=== PATIENT | female | born 1970 | race American Indian/Alaskan Native ===

== ENCOUNTER 2016-08-22 12:32 | Outpatient (CLI) | payer BC ==
--- NOTE | 2016-08-23 15:14 | Mammography Report ---
BILATERAL DIGITAL SCREENING MAMMOGRAM with CAD: 08/22/16 12:32:00 CLINICAL: Routine screening. COMPARISON:05/19/15 FINDINGS: The breasts are almost entirely fatty. No mass, architectural distortion or suspicious calcifications. IMPRESSION: No mammographic evidence of malignancy. BI-RADS CATEGORY: 1 - - Negative RECOMMENDATION: Routine mammographic screening in one year. COMMENT: Patient follow-up letters are generated by our [employer] application.
== END 2016-08-22 12:33 | disposition home or self-care (01) ==
LOC: MAMMO 12:32
PROVIDERS: ATTEND Obstetrics & Gynecology Gynecology
DX: Z12.31 Encounter for screening mammogram for malignant neoplasm of breast (principal)
CPT/HCPCS: 77067; G0202

== ENCOUNTER 2018-10-02 06:59 | Outpatient (CLI) | payer BC ==
--- NOTE | 2018-10-02 11:34 | Mammography Report ---
BILATERAL DIGITAL SCREENING MAMMOGRAM with CAD: 10/02/18 06:59:00 CLINICAL: Routine screening. COMPARISON:08/22/16 FINDINGS: The breasts are mostly fatty with a few bilateral scattered fibroglandular densities. A right asymmetry on the CC view requires additional imaging.No architectural distortion or suspicious calcifications.The left breast is negative. IMPRESSION: Right asymmetry requiring further workup. BI-RADS CATEGORY: 0 -- Additional Imaging Evaluation Required RECOMMENDATION: Recall for right lateralmedial and spot length the case and CC views and right breast ultrasound if needed. ACR BI-RADS MAMMOGRAPHIC CODES: 0 = Needs additional imaging evaluation; 1 = Negative; 2 = Benign; 3 = Probably benign; 4 = Suspicious; 5 = Malignant; 6 = Known biopsy-proven malignancy COMMENT: 1. Dense breast tissue, i.e., adenosis, fibrocystic changes, etc., may obscure an underlying neoplasm. 2. Approximately 10% of cancers are not detected with mammography. 3. A negative mammography report should not delay biopsy if a clinically suspicious mass is present. COMMENT: Patient follow-up letters are generated via our [employer] application.
== END 2018-10-02 07:00 | disposition home or self-care (01) ==
LOC: MAMMO 06:59
PROVIDERS: ATTEND Obstetrics & Gynecology
DX: Z12.31 Encounter for screening mammogram for malignant neoplasm of breast (principal)
CPT/HCPCS: 77067

== ENCOUNTER 2019-12-05 06:46 | Outpatient (CLI) | payer BC ==
--- NOTE | 2019-12-05 07:46 | Mammography Report ---
DIGITAL SCREENING MAMMOGRAM WITH CAD, 12/05/2019 INDICATION: Routine screening mammography. ROUTINE TECHNIQUE: Digital bilateral 2D mammography was obtained in the craniocaudal and mediolateral obliq ue projections. This examination was interpreted with the benefit of Computer-Aided Detection analysi s. COMPARISON: 10/02/2018 and priors FINDINGS: Breast Density: The breasts are almost entirely fatty. There is no evidence of dominant mass, suspicious calcifications or architectural distortion in eithe r breast. IMPRESSION: No evidence of malignancy Follow up recommendation: Routine yearly BI-RADS Category 1: Negative. A "normal" or negative report should not discourage follow up or biopsy of a clinically significant f inding. A written summary of these findings will be mailed to the patient. The patient will be entered into a mammography reporting system which will generate a reminder letter for the patient's next appointmen t at the appropriate interval. The [employer] recommends yearly mammograms starting at age 40 and continuing as l danyelle as a woman is in good health. Breast MRI is recommended for women with an approximate 20-25% or greater lifetime risk of breast cancer, including women with a strong family history of breast or ova alexandro cancer or who have been treated for Hodgkin's disease. Signer Name: Nathanael Avila MD Signed: 12/05/2019 7:42 AM Workstation Name: [id number]
== END 2019-12-05 06:47 | disposition home or self-care (01) ==
LOC: MAMMO 06:46
PROVIDERS: ATTEND Obstetrics & Gynecology
DX: Z12.31 Encounter for screening mammogram for malignant neoplasm of breast (principal); N64.89 Other specified disorders of breast
CPT/HCPCS: 77067

== ENCOUNTER 2021-04-15 05:33 | Day surgery (SDC) | payer BC ==
--- NOTE | 2021-04-12 15:45 | Anesthesia Consultation ---
Anesthesia Consult and Med Hx Date of service: 04/15/21 - Airway Anesthetic Teeth Evaluation: Good ROM Head & Neck: Adequate Mental/Hyoid Distance: Adequate Mallampati Class: Class II Intubation Access Assessment: Good - Pre-Operative Health Status ASA Pre-Surgery Classification: ASA2 Proposed Anesthetic Plan: General Nerve Block: TAP - Pulmonary Hx Respiratory Symptoms: No (+2FS) - Cardiovascular System Hx Hypertension: (Occas "White coat syndrome") - Central Nervous System Hx Psychiatric Problems: No - Hematic Hx Anemia: Yes - Other Systems Hx Alcohol Use: Yes (Occas) Hx Cancer: No Hx Obesity: Yes
--- NOTE | 2021-04-13 19:11 | History and Physical Report ---
History of Present Illness Date of examination: 04/12/21 History of present illness: Patient has been reassessed/reevaluated. H&P has been reviewed. No interval changes. This is a 50 years old female who presents with menstrual disorder. The patient complains of menorrhagia, metrorrhagia, dyspareunia, abnormal periods, pelvic pain and anxiety. She complains of irregular menses, heavy bleeding, dysmenorrhea, clotting, history of fibroids, fatigue and cramping, but denies mid-cycle spotting, lack of menses, history of ovarian cysts, history of thyroid disease, history of PCOS, history of bleeding disorder and lighth, but denies abnormal pap smears, dysmenorrhea, post-coital bleeding, abnormal vaginal discha rge, vaginal burning/irritation, vaginal itching, breast mass or lumps, depression, urinary symptoms, chest pain, palpitations, shortness of breath, leg swelling, back pain, abdominal pain, headaches and bowel problems. Patient's work up has included a transvaginal ultrasound which revealed multiple leiomyomas. Patient's symptoms when present disrupts her normal daily activities Patient desires definitive treatment Vital Signs: Patient Profile: 50 Years Old Female LMP: 03/30/2021 Height: 62 inches Weight: 222 pounds BMI: 40.60 Temp: 97.4 degrees F BP sittin / 80 (left arm) Menstrual History: LMP (date): 03/30/2021 Date of Last Mammogram: 12/05/2019 Date of Last Pap Smear: 02/04/2021 Past History : 4 Term Births: 0 Premature Births: 0 Living Children: 0 Para: 0 Mult. Births: 0 Prev : 0 Aborta: 4 Elect. Ab: 2 Spont. Ab: 1 Ectopics: 1 Current Allergies (reviewed today): PCN (Critical) PERCOCET ( Patient states she had one incidence of itching after percocet but has since taken without problem) Past Medical History: Reviewed history from 02/03/2021 and no changes required: Fibroids Endometriosis Past Surgical History: Reviewed and updated today: Salpingectomy Breast Reduction: Family History Summary: Family History of Diabetes father side of the family mother of lung and bone cancer Social History: Patient is single active no condom Smoking History: Patient has never smoked. 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 of genital herpes: no Partner hx. of genital herpes: no Rash/viral illness since LMP: no Hx of STD: None Review of Systems General Complains of fatigue. Denies fever, chills, sweats, anorexia, weakness, malaise, weight loss and sleep disorder. Complains of menorrhagia, pelvic pain and painful periods. Denies vaginal discharge, incontinence, dysuria, hematuria, urinary frequency, amenorrhea, abnormal vaginal bleeding, genital sores, decreased libido, painful sex, urinary urgency, hot flashes, vaginal dryness, vaginal itching and vaginal odor. CV Denies chest pains, palpitations, syncope, dyspnea on exertion, orthopnea, PND and peripheral edema. Resp Denies cough, dyspnea at rest, excessive sputum, hemoptysis, wheezing and pleurisy. GI Denies nausea, vomiting, diarrhea, constipation, change in bowel habits, abdominal pain, melena, hematochezia, jaundice, gas/bloating, indigestion/heartburn, dysphagia and odynophagia. Breast Denies left breast lump, right breast lump, nipple discharge, bloody discharge from nipple, breast pain, abnormal mammogram and breast enlargement. Psych Denies depression, anxiety, irritability and mood swings. Past History Past Medical History: other (SEE HPI FOR DETAILS) Past Surgical History: Other (SEE HPI FOR DETAILS) Social history: full code, other (SEE HPI FOR DETAILS) Family history: other (SEE HPI FOR DETAILS) Medications and Allergies Allergies Allergy/AdvReac Type Severity Reaction Status Date / Time Penicillins Allergy Mild Itching Unverified 04/09/21 16:00 acetaminophen [From Percocet] AdvReac Mild Swelling Unverified 04/09/21 16:00 oxycodone HCl [From Percocet] AdvReac Mild Swelling Unverified 04/09/21 16:00 Home Medications Medication Instructions Recorded Confirmed Last Taken Type No Known Home Medications [No 04/09/21 04/09/21 Unknown History Reported Home Medications] Active Meds: Active Medications Celecoxib (Celecoxib 200 Mg Cap) 400 mg PO PREOP NR Stop: 04/15/21 23:00 Fentanyl (Fentanyl 100 Mcg/2 Ml Inj) 100 mcg IV ONCE ONE Stop: 04/15/21 06:01 Methocarbamol 1,000 mg/ Sodium (Chloride) 260 mls @ 250 mls/hr IV ONCE ONE Stop: 04/15/21 07:02 Lactated Ringer's (Lactated Ringers) 1,000 mls @ 125 mls/hr IV DIRECT LUMZARIA Magnesium Oxide (Magnesium Oxide 400 Mg Tab) 400 mg PO ONCE ONE Stop: 04/15/21 06:01 Midazolam HCl (Midazolam 2 Mg/2 Ml Inj) 2 mg IV PREOP NR Stop: 04/15/21 23:59 Review of Systems Constitutional: other (SEE HPI FOR DETAILS) Exam - Physical Exam Narrative exam: HEENT: normocephalic, no lesions or deformities Skin no ulcers, xanthomas .Tatoo(s) are present Chest: respiratory effort normal, clear to auscultation CV: regular, normal S1-S2, no murmur, no rub, no gallop Abdomen: Obese, normal bowel sounds, soft, nontender, no HSM Neuro: no gross anomalities Extremities: no clubbing, cyanosis, or edema .Tatoo(s) are present 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 No evidence of cystocele or rectocele. Cervix: normal appearance, no lesions, no discharge Uterus: Enlarged uterus 12 to 14 weeks size Adnexae: unable to palpate due to obesity Rectovaginal: Rectal exam deferred due to colonoscopy recently performed or is planned - Constitutional Vitals: Temp Pulse Resp BP Pulse Ox 98.2 F 75 20 171/81 100 04/12/21 08:05 04/12/21 08:05 04/12/21 08:05 04/12/21 08:05 04/12/21 08:05 Assessment and Plan - Patient Problems (1) Menometrorrhagia Current Visit: No Status: Acute Plan to address problem: Probably secondary to # 1 (2) Intramural leiomyoma of uterus Current Visit: No Status: Acute Plan to address problem: Diagnosis explained to patient . Questions answered. Discussed with patient various medical, surgical and radiological therapies common for treatment including expectant management, myomectomy hysterectomy and uterine artery embolization Patient desires definitive treatment Patient desires hysterectomy Discussed risks and benefits of laparotomy, laparoscopy, vaginal and robotic assisted approaches for hysterectomies Patient desires robotic assisted total hysterectomy. Consent reviewed and signed . The risks and alternatives for this surgery were reviewed with the patient. Discuss the risks of the surgery including infection, bleeding possibly heavy enough to require a blood transfusion, possible damage to bowel, bladder or ureter. Patient understand that this surgery with make her sterile.Patient understands if her ovaries are removed she will become menopausal. Also if unable to complete robitcally a laparotomy may be required. Patient understands her risks of adjacent organ damage is increased due to her previous surgery(ies) (3) Dysmenorrhea Current Visit: No Status: Acute Plan to address problem: Probably secondary to # 1 (4) Anemia due to chronic blood loss Current Visit: No Status: Acute Plan to address problem: Probably secondary to # 3 (5) Endometriosis Current Visit: No Status: Acute (6) BMI 40.0-44.9, adult Current Visit: No Status: Acute
[2021-04-15] MEDS ORDERED: LACTATED RINGERS 1,000 ML IV SCH (06:00)
[2021-04-15] MEDS ORDERED: MAGNESIUM OXIDE 400 MG TAB PO ONE (06:00)
[2021-04-15] MEDS ORDERED: methOCARBAMOL 1,000 MG in SODIUM CHLORIDE 0.9% 250ML 250 ML IV ONE (06:00)
[2021-04-15] MEDS ORDERED: CELECOXIB 200 MG CAP PO NR (06:00)
[2021-04-15] MEDS ORDERED: fentaNYL 100 MCG/2 ML INJ IV ONE (06:00)
[2021-04-15] MEDS ORDERED: MIDAZOLAM 2 MG/2 ML INJ IV NR (06:00)
[2021-04-15] MEDS ORDERED: ACETAMINOPHEN 500 MG TAB ONE (06:27)
[2021-04-15] MEDS ORDERED: GENTAMICIN 500 MG in SODIUM CHLORIDE 0.9% 100 ML IV ONE (07:00)
[2021-04-15] MEDS ORDERED: LIDOCAINE MPF (2%) 20 MG/1 ML VIAL 5 ML ONE (07:08)
[2021-04-15] MEDS ORDERED: propofoL 200 MG/20 ML VIAL IV ONE (07:09)
[2021-04-15] MEDS ORDERED: KETAMINE/STERILE WATER 50 MG/ML SYRINGE ONE (07:09)
[2021-04-15] MEDS ORDERED: ONDANSETRON 4 MG/2 ML INJ IV PRN ×2 (07:17→16:10)
[2021-04-15] MEDS ORDERED: HYDROmorphone 1 MG/1 ML INJ IV PRN (07:17)
--- NOTE | 2021-04-15 07:18 | Anesthesia Day of Surgery ---
Anesthesia Day of Surgery - Day of Surgery Patient Examined: Yes Patient H&P Reviewed: Yes Patient is NPO: Yes
[2021-04-15] MEDS ORDERED: BUPIVACAINE/PF (0.25%) 2.5 MG/ML 30 ML VIAL INFILTRATI ONE (07:24)
[2021-04-15] MEDS ORDERED: NEOMY 40 MG/POLYMYXIN B 200,000 UNITS/ML (GU) AMPULE IR ONE ×2 (07:26→09:15)
[2021-04-15] MEDS ORDERED: dexAMETHasone 20 MG/5 ML VIAL ONE (07:31)
[2021-04-15] MEDS ORDERED: MIDAZOLAM 5 MG/5 ML INJ MDV IV ONE (07:38)
[2021-04-15] MEDS ORDERED: CITRIC ACID-SOD CITRATE 500 ML IV ONE (08:37)
[2021-04-15] MEDS ORDERED: ONDANSETRON 4 MG/2 ML INJ ONE ×2 (08:40→16:15)
[2021-04-15] MEDS ORDERED: ROCURONIUM 50 MG/5 ML INJ IV ONE ×2 (08:40→09:17)
[2021-04-15] MEDS ORDERED: KETOROLAC 30 MG/1 ML INJ ONE ×2 (08:41→13:09)
[2021-04-15] MEDS ORDERED: NEOSTIGMINE 10MG/10 ML INJ MDV ONE (08:42)
[2021-04-15] MEDS ORDERED: GLYCOPYRROLATE 0.4 MG/2 ML INJ ONE ×2 (08:42→09:20)
[2021-04-15] MEDS ORDERED: ePHEDrine SULFATE 50 MG/1 ML INJ ONE (09:11)
[2021-04-15] MEDS ORDERED: SODIUM CHLORIDE 0.9% IRR 1,500 ML BOTTLE IR ONE (09:16)
[2021-04-15] MEDS ORDERED: SODIUM CHLORIDE 0.9% IRRIG SOLN 2000 ML IR ONE (09:17)
[2021-04-15] MEDS ORDERED: CITRIC ACID-SOD CITRATE SOLN 500 ML IV SOLN IV ONE (09:17)
[2021-04-15] MEDS ORDERED: HYDROmorphone 1 MG/1 ML INJ ONE (09:26)
[2021-04-15] MEDS ORDERED: METHYLENE BLUE 50 MG/10 ML AMP ONE (09:51)
[2021-04-15] MEDS ORDERED: METHYLENE BLUE 50 MG/10 ML AMP IV ONE (09:53)
[2021-04-15] MEDS ORDERED: SODIUM CHLORIDE 0.9% 1000 ML 1,000 ML ONE (10:27)
[2021-04-15] MEDS ORDERED: PHENYLEPHRINE/NS 1,000 MCG/10 ML SYRINGE (OR USE) IV ONE (11:33)
[2021-04-15] MEDS ORDERED: ACETAMINOPHEN 325 MG TAB PO PRN (13:04)
[2021-04-15] MEDS ORDERED: HYDROcodone/ACETAMINOPHEN 5-325 MG TAB PO PRN (13:04)
[2021-04-15] MEDS ORDERED: KETOROLAC 30 MG/1 ML INJ IV SCH (13:06)
--- NOTE | 2021-04-15 13:36 | Operative Report ---
Operative Report Operative Report: Date of procedure: April 15, 2021 Pre-operative diagnosis: Symptomatic leiomyomata with pelvic pain dysmenorrhea menorrhalgia history of anemia Post-operative diagnosis: Same plus pelvic adhesive disease Procedure name(s):Robotic Assisted Total Hysterectomy with bilateral salpingectomy, left oophorectomy and lysis of adhesions Surgeon: Aung Freedman MD Collections Clerk: Nicole Reno, certified indoor environmentalist Anesthesia: General EBL: 400 cc patient received 125 cc of Cell Saver Complications: None Findings: Patient with a uterus approximately 16 to 18 weeks in size with multiple leiomyomata she had omental adhesions of the anterior abdominal wall adhesions of the left adnexa to the left sidewall with dense adhesions between the left adnexa and posterior uterus. Also some adhesions between the sigmoid colon and the left side of uterus with attachment to leiomyomata. Patient had normal-appearing right ovary bilaterally her fallopian tubes were . Specimen(s): Uterus and multiple pieces due to necessity of removing leiomyomata and also making her uterus are small enough to instruct to be extracted through the colpotomy. Bilateral fallopian tubes and left ovary Procedure: Patient was brought to the operating room where general anesthesia was induced without difficulty. Patient was placed in the dorsal lithotomy position. Prepped and draped in the usual sterile manner for robotic procedure. Guevara catheter was placed without difficulty. Speculum was placed in the vagina. A medium V-Care Uterine manipulator was placed without difficulty. Attention was now switched to the patient's abdomen. A vertical supra-umbilicus incision was made with a scalpel. A 10-12 trocar was placed in this incision under direct visualization. Intra-abdominal placement was verified with no evidence of internal organ damage. The patient was insufflated approximately 3-1/2 L of CO2 gas. She was placed in Trendelenburg position. The patient pelvic findings were noted as above. It was determined that the patient was a candidate for robotic procedure. On both sides the umbilical incision at about 8 cm, incisions were made for robotic trocars. Each robotic trocar was placed under direct visualization with no evidence of internal organ damage. One 5 mm trocar was placed 2 fingerbreadths above the right iliac crest. A 5 mm camera was placed in the right lower quadrant trocar, the 10-12 trocar was removed and a Sagar Nugent laparoscopic port closure device was placed through this incision under direct visualization with no evidence of internal organ damage. The camera was then replaced into this port. At this time the patient was placed in extreme Trendelenburg. The da Mely robot was then docked on the patient's left side. The trocars connected to the robot appropriately robotic instruments were placed under direct visualization no evidence of internal organ damage.. At this time I took my place under the robotic operating moody. The omental vision was first done taken down sharply and bluntly using the vessel sealer and bipolar cautery. The lysis of adhesion was complete with no evidence of organ damage. At this time we could visualize the patient's pelvis more clearly and then noted the dense adhesions of the left adnexa also adhesions on the left side of the uterus and the left side of the posterior cul-de-sac.*The patient's left side using the vessel sealer the round ligament was cauterized and cut with open up the broad ligament to again assist in lysis of adhesions. The denseness of the adhesions between the left adnexa was clearly appreciated on the side. Then made decision to starting the patient's right side to ensure we can preserve her right ovary. Methylene blue was given intravenously to help ensure that if damage to either the bladder or ureters could be detected. There was no spillage of dye noted throughout the case. Patient did have evidence of dye reaching her bladder. Starting on the patient's right side the ureter was identified and found to be out of the operative field. Using the robotic vessel sealer the round ligament was cauterized and cut. The broad ligament was then opened. The bladder flap was formed anteriorly. The utero-ovarian complex was then cauterized and cut. The posterior broad ligament was then excised. The uterine vessels were skeletonized. The ureter was clearly seen out of the operative field. The bladder was pushed away from the anterior uterus. The right uterine vessels were then cauterized and cut. Attention was then switched to the patient's left side. A continue to lyse adhesions between the uterus sigmoid colon and left sidewall. The left ovary was encased in adhesions on the posterior uterus, therefore I am cauterized and cut the left ovarian vessels using the vessel sealer. The uterine vessels were now more clearly seen and with further lysis of adhesions and cautery and cut they were skeletonized. The isolated uterine vessels cauterized and cut. I then completed the bladder flap from the left side. At this time the uterus was appearing very cyanotic. After inspecting the bladder flap to insured no evidence of bladder injury, the colpotomy was then started. Incision started at 12:00 until the V-Care could be seen. This incision was extended from 12:00 to 9:00. Then from 12:00 to 3:00. Then from 9:00 to 6:00. This incision was extended from 3:00 to 6:00. At this time colpotomy was complete with no evidence of adjacent organ damage. The uterus was much too large to be delivered to the colpotomy site, therefore start the process of removing multiple fibroids and delivering those fibroids through to colpotomy to the produce assistant. Even after several moments and then remove the uterus was still too large and the removal multiple portions of the fundus and attempt to bivalve the uterus. Several portion of the uterus within removed then delivered through the colpotomy into the uterus could be completely remove. The produce assistant remove the uterus from through the colpotomy site. The patient's pelvis and vaginal cuff was irrigated and cauterized and found to be hemostatic. Small pieces of the uterus were also removed as much could be seen. The cuff was closed with roboticly using 0 V- Lock suture. This closure was hemostatic after irrigation and Bovie. All pedicles were inspected and found to be hemostatic. The ureters were identified bilaterally and found to be functioning normal. The patient had clear urine in the Guevara catheter with no evidence of mixture with blood. Walt was placed on the cuff and pedicles for postoperative hemostasis . All instruments were then removed. The large trocar sites were closed in layers 2-0 Vicryl and 4-0 Monocryl. The smaller incisions were closed subcuticularly with 4-0 Monocryl. Dermabond was placed over the skin incisions. The patient tolerated procedure well. She was awakened in the operating room and accompanied to the recovery room in good condition.
[2021-04-15] MEDS: HYDROmorphone 1 MG/1 ML INJ IV PRN ×2 (14:03→15:05)
--- NOTE | 2021-04-15 15:28 | Post Anesthesia Evaluation ---
- Post Anesthesia Evaluation Patient Participated: Yes Airway Patent: Yes Stable Respiratory Function: Yes Nausea/Vomiting: No Temp > 96.8F: Yes Pain Manageable: Yes Adequeate Hydration: Yes Anesthesia Complications: No Block Receding Appropriately: Yes Patient on Ventilator: No
--- NOTE | 2021-04-15 16:19 | Event Note ---
Date: 04/15/21 Spoke to Lidya in recovery. She states the patient is doing well vital signs are stable she has been up and walk to the restroom and voided successfully and is presently eating. Plan is to observe her until approximately 1800 with discharge papers continue to be stable and meets of outpatient discharge criteria.
--- NOTE | 2021-04-15 17:19 | Short Stay Summary ---
Short Stay Documentation Date of service: 04/15/21 - History Principal diagnosis: Symptomatic leiomyomata H&P: dictated Past Medical History: other (SEE HPI FOR DETAILS) Past Surgical History: Other (SEE HPI FOR DETAILS) Social history: full code, other (SEE HPI FOR DETAILS) - Allergies and Medications Current Medications: Allergies Penicillins Allergy (Mild, Unverified 04/09/21 16:00) Itching SWELLING acetaminophen [From Percocet] Adverse Reaction (Mild, Unverified 04/09/21 16:00) Swelling AND ITCHING oxycodone HCl [From Percocet] Adverse Reaction (Mild, Unverified 04/09/21 16:00) Swelling AND ITCHING Home Medications Medication Instructions Recorded Confirmed Last Taken Type Ferrous Sulfate [Feosol 325 MG tab] 325 mg PO BID #60 tablet 04/15/21 Unknown Rx HYDROcodone/APAP 5-325 [[place] 1 - 2 each PO Q6HR PRN #20 tablet 04/15/21 Unknown Rx 5/325] Ibuprofen [Motrin] 800 mg PO TID PRN #30 tablet 04/15/21 Unknown Rx metroNIDAZOLE [Flagyl] 500 mg PO Q12HR #14 tab 04/15/21 Unknown Rx Active Medications Acetaminophen (Acetaminophen 325 Mg Tab) 650 mg PO Q4H PRN PRN Reason: Pain MILD(1-3)/Fever >100.5/[place] Hydrocodone Bitart/Acetaminophen (Hydrocodone/Acetaminophen 5-325 Mg Tab) 2 each PO Q6H PRN PRN Reason: Pain, Moderate (4-6) Celecoxib (Celecoxib 200 Mg Cap) 400 mg PO PREOP NR Stop: 04/15/21 23:00 Last Admin: 04/15/21 07:10 Dose: 400 mg Documented by: Hydromorphone HCl (Hydromorphone 1 Mg/1 Ml Inj) 0.25 mg IV Q10MIN PRN PRN Reason: Pain, Moderate (4-6) Stop: 04/15/21 20:00 Hydromorphone HCl (Hydromorphone 1 Mg/1 Ml Inj) 0.5 mg IV Q10MIN PRN PRN Reason: Pain , Severe (7-10) Stop: 04/15/21 22:00 Last Admin: 04/15/21 14:03 Dose: 0.5 mg Documented by: Lactated Ringer's (Lactated Ringers) 1,000 mls @ 125 mls/hr IV DIRECT LUZMARIA Last Admin: 04/15/21 07:00 Dose: 125 mls/hr Documented by: Clindamycin HCl (Cleocin 900 Mg/50 Ml) 900 mg in 50 mls @ 100 mls/hr IV PREOP NR; Protocol Stop: 04/16/21 23:59 Ketorolac Tromethamine (Ketorolac 30 Mg/1 Ml Inj) 30 mg IV Q6H LUZMARIA Stop: 04/20/21 13:05 Last Admin: 04/15/21 13:15 Dose: 30 mg Documented by: Midazolam HCl (Midazolam 2 Mg/2 Ml Inj) 2 mg IV PREOP NR Stop: 04/15/21 23:59 Last Admin: 04/15/21 07:00 Dose: 2 mg Documented by: Ondansetron HCl (Ondansetron 4 Mg/2 Ml Inj) 4 mg IV ONCE PRN PRN Reason: Nausea And Vomiting Stop: 04/15/21 23:59 - Physical exam General appearance: no acute distress Integumentary: no rash HEENT: Atraumatic Breasts: deferred Heart: Regular rate Gastrointestinal: normal, tenderness - Hospital course Hospital course: Patient was admitted underwent the above him procedure without any complications. Patient was admitted and underwent above procedure without complications. Her post operative extended recovery observation course was benign she was afebrile throughout. Patient had no orthostatic symptoms. Patient was tolerating regular diet and voiding without difficulty at time of discharge. Patient incision was healing well without evidence of infection. Patient will be discharged with follow-up in office in 1-2 weeks for postop check - Disposition Condition at discharge: Good Disposition: 01 HOME / SELF CARE / HOMELESS - Discharge Diagnoses (1) Menometrorrhagia Status: Acute (2) Intramural leiomyoma of uterus Status: Acute (3) Dysmenorrhea Status: Acute (4) Anemia due to chronic blood loss Status: Acute (5) Endometriosis Status: Acute (6) BMI 40.0-44.9, adult Status: Acute Short Stay Discharge Plan Activity: advance as tolerated Diet: regular Wound: open to air Additional Instructions: Call Dr Freedman for all questions and concerns. Call Dr Freedman office for follow up appointment in one week Forms: Outpatient Surgery DC Inst. Prescriptions: Ferrous Sulfate [Feosol 325 MG tab] 325 mg PO BID #60 tablet metroNIDAZOLE [Flagyl] 500 mg PO Q12HR #14 tab Ibuprofen [Motrin] 800 mg PO TID PRN #30 tablet PRN Reason: Pain HYDROcodone/APAP 5-325 [[place] 5/325] 1 - 2 each PO Q6HR PRN #20 tablet PRN Reason: Pain
[2021-04-15 19:00] VITALS: BP 116/70
== END 2021-04-15 18:30 | disposition home or self-care (01) ==
LOC: OR 05:33
PROVIDERS: ATTEND Obstetrics & Gynecology
DX: D25.1 Intramural leiomyoma of uterus (principal); N92.0 Excessive and frequent menstruation with regular cycle; N94.6 Dysmenorrhea, unspecified; N80.0 Endometriosis of uterus; N72 Inflammatory disease of cervix uteri; N88.8 Other specified noninflammatory disorders of cervix uteri; N83.12 Corpus luteum cyst of left ovary; Z20.822 Contact with and (suspected) exposure to COVID-19; E66.9 Obesity, unspecified; Z79.899 Other long term (current) drug therapy; Z88.0 Allergy status to penicillin; Z88.8 Allergy status to other drugs, medicaments and biological substances; Z98.890 Other specified postprocedural states
CPT/HCPCS: 58573; 64488; 81025; 86850; 86900; 86901; 88302; 88307; A4217; J1100; J1170; J1580; J1885; J2250; J2370; J2405; J2704; J2710; J2800; J3010; J3490; J7030; J7050; J7120; Q9968; S2900; U0003; 64450

== ENCOUNTER 2021-06-04 07:21 | Outpatient (CLI) | payer BC ==
[2021-06-04 09:03] LABS: Blood Urea Nitrogen 12 mg/dL (7-17)
--- NOTE | 2021-06-04 10:14 | Cat Scan Report ---
CT ABDOMEN AND PELVIS WITHOUT CONTRAST INDICATION / CLINICAL INFORMATION: ABDOMINAL PAIN. TECHNIQUE: Axial CT images were obtained through the abdomen and pelvis without IV contrast. All CT scans at this location are performed using CT dose reduction for ALARA by means of automated exposure control. COMPARISON: None available. FINDINGS: LOWER CHEST: No significant abnormality. LIVER: No significant abnormality. GALLBLADDER: No significant abnormality. BILE DUCTS: No significant abnormality. PANCREAS: No significant abnormality. SPLEEN: No significant abnormality. ADRENALS: No significant abnormality. RIGHT KIDNEY / URETER: No significant abnormality. LEFT KIDNEY / URETER: No significant abnormality. STOMACH / SMALL BOWEL: No significant abnormality. COLON: No significant abnormality. APPENDIX: No significant abnormality. PERITONEUM: No free fluid. No free air. No fluid collection. LYMPH NODES: No significant adenopathy. AORTA / ARTERIES: No significant abnormality. IVC / VEINS: No significant abnormality. URINARY BLADDER: No significant abnormality. REPRODUCTIVE ORGANS: Uterus is absent. No significant adnexal abnormality. ADDITIONAL FINDINGS: There are several phleboliths in the pelvis. SKELETAL SYSTEM: No acute abnormality. IMPRESSION: 1. There is no obstruction, inflammation, or free air. There are no renal or ureteral calculi. There is no hydronephrosis. Signer Name: Iain Christopher MD Signed: 06/04/2021 10:09 AM Workstation Name: [id number]
== END 2021-06-04 07:22 | disposition home or self-care (01) ==
LOC: LAB 07:21 → CT 07:21 → LAB 07:22
PROVIDERS: ATTEND Obstetrics & Gynecology
DX: R10.9 Unspecified abdominal pain (principal); Z90.710 Acquired absence of both cervix and uterus
CPT/HCPCS: 36415; 74176; 82565; 84520

== ENCOUNTER 2021-07-15 07:06 | Outpatient (CLI) | payer BC ==
--- NOTE | 2021-07-15 14:06 | Mammography Report ---
DIGITAL SCREENING MAMMOGRAM WITH CAD, 07/15/2021 CLINICAL INFORMATION / INDICATION: Routine screening TECHNIQUE: Digital bilateral 2D mammography was obtained in the craniocaudal and mediolateral obliqu e projections. This examination was interpreted with the benefit of Computer-Aided Detection analysis . COMPARISON: 12/05/2019 FINDINGS: Breast Density: There are scattered areas of fibroglandular density. No dominant mass, suspicious calcifications, or architectural distortion in either breast. IMPRESSION: No mammographic evidence of malignancy. Follow up recommendation: Routine yearly BI-RADS Category 1: NEGATIVE A "normal" or negative report should not discourage follow up or biopsy of a clinically significant f inding. A written summary of these findings will be mailed to the patient. The patient will be entered into a mammography reporting system which will generate a reminder letter for the patient's next appointmen t at the appropriate interval. The [employer] recommends yearly mammograms starting at age 40 and continuing as l danyelle as a woman is in good health. Breast MRI is recommended for women with an approximate 20-25% or greater lifetime risk of breast cancer, including women with a strong family history of breast or ova alexandro cancer or who have been treated for Hodgkin's disease. Signer Name: Nathanael Avila MD Signed: 07/15/2021 2:01 PM Workstation Name: [id number]
== END 2021-07-15 07:07 | disposition home or self-care (01) ==
LOC: MAMMO 07:06
PROVIDERS: ATTEND Obstetrics & Gynecology
DX: Z12.31 Encounter for screening mammogram for malignant neoplasm of breast (principal)
CPT/HCPCS: 77067